=== PATIENT | female | born 1965 | race Hispanic/Latino ===

== ENCOUNTER → 2024-05-27 | Day surgery (SDC) | payer OTHER ==
[~2024-05-27] MED LIST: ALPRAZOLAM0.5 MG PO; CO Q-1010 MG PO; FENTANYL CITRATE/PF 100MCG/2 ML INJ ONE; GLUCOSAMINE1000 MG PO; LEXAPRO10 MG PO; LIDOCAINE HCL 2% LOCAL INJ 5 ML SDV VIAL INJ ONE; MAGNESIUM PO; MCT OIL PO; NEURIVA ORIGIN1 EACH PO; OMEGA 3 1,0001 EACH PO; PROBIOTICS PO; PROPOFOL IV EMULSION 10 MG/ML 20 ML VIAL ONE; PROPOFOL IV EMULSION 50 ML IV ONE; TURMERIC500 M1 PO; VITAMIN B121000 MCG PO; VITAMIN C1000 MG PO; VITAMIN D310 MCG PO; VITAMIN E1000 UNI1 PO; ZINC30 MG PO
[2024-05-27] MEDS: LACTATED RINGER'S 1,000 ML ONE (08:45)
[2024-05-27 10:49] VITALS: TEMP 97.6
[2024-05-27 11:10] VITALS: BP 120/56; PULSE 72; RESP 18; O2SAT 99
== END | disposition home or self-care (01) ==
LOC: OR 08:20
PROVIDERS: ATTEND Internal Medicine Gastroenterology
DX: Z12.11 Encounter for screening for malignant neoplasm of colon (principal); K63.5 Polyp of colon; K63.89 Other specified diseases of intestine; K64.8 Other hemorrhoids; K21.9 Gastro-esophageal reflux disease without esophagitis; M47.9 Spondylosis, unspecified; M17.10 Unilateral primary osteoarthritis, unspecified knee; G89.29 Other chronic pain; F41.9 Anxiety disorder, unspecified; Z88.0 Allergy status to penicillin; Z01.810 Encounter for preprocedural cardiovascular examination; Z79.899 Other long term (current) drug therapy
CPT/HCPCS: 45380; 45385; 93005; J2003; J2704 ×2; J7121; 45378